=== PATIENT | male | born 1955 | race Caucasian/White ===

== ENCOUNTER → 2016-12-20 | Outpatient (CLI) | payer OTHER ==
--- NOTE | 2016-12-20 09:36 | CPEKG ---
Heart Rate: 55 RR Interval: 1091 P-R Interval: 192 QRSD Interval: 100 QT Interval: 408 QTC Interval: 391 P Massey: 73 QRS Massey: 72 T Wave Massey: 75 EKG Severity - NORMAL ECG - EKG Impression: SINUS RHYTHM Electronically Signed By: Damian Cannon 20-Dec-2016 20:31:06
== END ==
LOC: FCP 09:19
PROVIDERS: ATTEND Neurological Surgery
DX: Z01.812 Encounter for preprocedural laboratory examination (principal)

== ENCOUNTER → 2016-12-20 | Outpatient (CLI) | payer OTHER | LOC: FIMAGING 09:54 | PROVIDERS: ATTEND Neurological Surgery | DX: Z01.812 Encounter for preprocedural laboratory examination (principal) ==

== ENCOUNTER 2016-12-29 11:59 | Observation (INO) | payer OTHER ==
--- NOTE | 2016-12-29 12:24 | EDPHY ---
H & P Stated Complaint: cervical fusion friday/increasing pain/swelling/can't swallow meds - Personal History Current Tetanus/Diphtheria Vaccine: Unsure - Medical/Surgical History Hx Asthma: No Hx Chronic Respiratory Disease: No Hx Diabetes: No Hx Cardiac Disease: No Hx Renal Disease: No Hx Cirrhosis: No Hx Alcoholism: No Hx HIV/AIDS: No Hx Splenectomy or Spleen Trauma: No Other PMH: polymyalgia/cervical fusion - Social History Smoking Status: Never smoked Time Seen by Provider: 12/29/16 12:15 HPI/ROS: CHIEF COMPLAINT: Dysphagia postoperative HISTORY OF PRESENT ILLNESS: 61-year-old male postop day to post C3 through C7 ACDF by Dr. Hector Allen arrives via private vehicle complaining of dysphagia and odynophagia for the past 24 hours. He has been in contact with [facility] this weekend (today is Friday). He has had difficulty swallowing his pills. He denies: Peripheral paresthesia, weakness, numbness, fever, chills, flu-like symptoms visual disturbance, chest pain, dyspnea REVIEW OF SYSTEMS: A ten point review of systems was performed and is negative with the exception of the items mentioned in the HPI PAST MEDICAL & SURGICAL HISTORY: Postop day 3 C3 through C7 ACDF SOCIAL HISTORY: nonsmoker PHYSICAL EXAM (Prior to examination, patient consented to physical exam, hands were washed and my usual and customary physical exam procedures followed) 1) GENERAL: Well-developed, well-nourished, alert and oriented. Appears uncomfortable and anxious 2) HEAD: Normocephalic, atraumatic 3) HEENT: Pupils equal, round, reactive to light bilaterally. Sclera anicteric. No ptosis. moist mucous membranes 4) NECK: Cervical collar in place with JUSTIN drain draining 5) LUNGS: Clear auscultation bilaterally, no wheezes, no rhonchi, no retractions. 6) HEART: Regular rate and rhythm, no murmur, no heave, no gallop. 7) ABDOMEN: No guarding, no rebound, no focal tenderness, 8) MUSCULOSKELETAL: Moving all extremities, no focal areas of tenderness, no obvious trauma. No peripheral edema or discoloration. 9) BACK: no visual or palpable abnormality. 10) SKIN: No rash, no petechiae. 11) Psychiatric: Patient is oriented X 3, there is no agitation. DIFFERENTIAL DIAGNOSIS: in no particular order including but not limited to postoperative pain, epidural abscess, dysphagia post cervical surgery (Mily Franklin) Constitutional: Initial Vital Signs Temperature (C) 36.9 C 12/29/16 12:04 Heart Rate 82 12/29/16 12:04 Respiratory Rate 18 12/29/16 12:04 Blood Pressure 133/73 H 12/29/16 12:04 O2 Sat (%) 92 12/29/16 12:04 O2 Delivery Mode Room Air Allergies/Adverse Reactions: No Known Allergies Allergy (Unverified 12/29/16 12:02) Home Medications: Medication Instructions Recorded Acetaminophen [Tylenol ES 500 mg 500 mg PO Q6 PRN 12/29/16 (*)] Methocarbamol [Robaxin 750 mg (*)] 750 mg PO Q6H 12/29/16 Morphine Sulfate [Morphine Sulfate 15 mg PO Q12H 12/29/16 ER] predniSONE 2 mg PO DAILY 12/29/16 Diazepam [Valium 5 MG (*)] 5 mg PO Q6HRS PRN #0 tab 12/30/16 oxyCODONE IR [Oxycodone Ir (*)] 5 - 10 mg PO Q3HRS PRN #0 tab 12/30/16 Medical Decision Making ED Course/Re-evaluation: 12:39 p.m.: MICHELL Benavidez with [facility] the ER has consulted with Dr. Hector Allen and plan will be admission to his service, start patient on IV Solu-Medrol and IV fluids. They request no imaging at this time. Discussed case with secondary supervising physician Dr Bolaños in ER. (Mily Franklin) - Data Points Medications Given: Discontinued Medications Diazepam (Valium) 5 mg PO Q6HRS PRN PRN Reason: Spasms Stop: 06/27/17 14:32 Last Admin: 12/30/16 12:19 Dose: 5 mg Enoxaparin Sodium (Lovenox) 40 mg SC BID HERNAN Stop: 06/27/17 14:29 Last Admin: 12/30/16 09:14 Dose: 40 mg Sodium Chloride (Ns) 1,000 mls @ 0 mls/hr IV ONCE ONE PRN Reason: Wide Open Stop: 12/29/16 12:38 Last Admin: 12/29/16 13:19 Dose: 1,000 mls Sodium Chloride (Ns) 1,000 mls @ 100 mls/hr IV CONT HERNAN Stop: 06/27/17 14:14 Last Admin: 12/30/16 00:00 Dose: 1,000 mls Methocarbamol (Robaxin) 750 mg PO Q6H HERNAN Stop: 06/27/17 14:29 Last Admin: 12/29/16 15:02 Dose: Not Given Methylprednisolone Sodium Succinate (Solu-Medrol) 125 mg IVP EDNOW ONE Stop: 12/29/16 12:38 Last Admin: 12/29/16 13:19 Dose: 125 mg Morphine Sulfate (Ms Contin/Oramorph) 15 mg PO Q12H HERNAN Stop: 01/08/17 19:59 Last Admin: 12/30/16 09:14 Dose: 15 mg Oxycodone HCl (Oxycodone Ir) 5 - 10 mg PO Q3HRS PRN PRN Reason: Pain, Severe Able to Take PO Stop: 01/08/17 14:10 Last Admin: 12/30/16 12:19 Dose: 10 mg Pneumococcal Polyvalent Vaccine (Pneumovax 23) 0.5 ml IM .ONCE ONE Stop: 12/30/16 13:07 Last Admin: 12/30/16 13:33 Dose: 0.5 ml Prednisone (Prednisone) 2 mg PO DAILY HERNAN Stop: 06/28/17 08:59 Last Admin: 12/30/16 09:33 Dose: 2 mg Departure - Departure Disposition: [facility] Clinical Impression: dysphagia post acdf Condition: Fair
[2016-12-29] MEDS ORDERED: methylPREDNISolone SOD SUCC 125 MG/2 ML VIAL IVP ONE (12:37)
[2016-12-29] MEDS ORDERED: NS 1,000 ML IV ONE (12:37)
[2016-12-29 12:56] LABS: % IMMATURE GRANULYOCYTES 0.2 % (0.0-1.1); ABSOLUTE IMMATURE GRANULOCYTES 0.02 10^3/uL (0.00-0.10); ADD DIFF? NO; ADD MORPH? NO; ADD SCAN? NO; ATYPICAL LYMPHOCYTE FLAG 0 (0-99); FRAGMENT RBC FLAG 0 (0-99); HEMATOCRIT 38.4 % (40.0-51.0); HEMOGLOBIN 12.8 g/dL (13.7-17.5); LEFT SHIFT FLG 0 (0-99); LIPEMIA HEMOLYSIS FLAG 80 (0-99); MEAN CELL HEMOGLOBIN 30.8 pg (27.9-34.1); MEAN CELL HEMOGLOBIN CONCENTR. 33.3 g/dL (32.4-36.7); MEAN CELL VOLUME 92.5 fL (81.5-99.8); MEAN PLATELET VOLUME 9.7 fL (8.7-11.7); PLATELET CLUMPS FLAG 0 (0-99); PLATELET COUNT 156 10^3/uL (150-400); RED BLOOD CELL COUNT 4.15 10^6/uL (4.40-6.38); RED CELL DISTRIBUTION WIDTH 11.9 % (11.5-15.2)
[2016-12-29 13:08] LABS: ANION GAP 9 mEq/L (8-16); CALCIUM 9.3 mg/dL (8.5-10.4); CARBON DIOXIDE 28 mEq/l (22-31); CHLORIDE 96 mEq/L (97-110); CREATININE 0.8 mg/dL (0.7-1.3); GLOMERULAR FILTRATION RATE > 60; GLUCOSE 89 mg/dL (70-100); POTASSIUM 4.2 mEq/L (3.5-5.2); SODIUM 133 mEq/L (134-144)
--- NOTE | 2016-12-29 13:58 | PDCONSULT ---
French Weaver Note: Patient was seen and examined. Agree with HandP by Stephenie Benavidez NP
[2016-12-29] MEDS ORDERED: diphenhydrAMINE 25 MG CAP PO PRN (14:11)
[2016-12-29] MEDS ORDERED: ACETAMINOPHEN 325 MG TAB PO PRN (14:11)
[2016-12-29] MEDS ORDERED: ONDANSETRON DISINTEGRATING 4 MG TAB PO PRN (14:11)
[2016-12-29] MEDS ORDERED: ONDANSETRON 4 MG/2 ML VIAL IVP PRN (14:11)
[2016-12-29] MEDS ORDERED: METHOCARBAMOL 750 MG TAB PO SCH (14:30)
[2016-12-29] MEDS ORDERED: morphINE SR 15 MG TAB PO SCH (14:30)
[2016-12-29] MEDS: oxyCODONE IR 5 MG TAB PO PRN ×2 (14:40→20:00)
[2016-12-29] MEDS: NS 1,000 ML IV SCH (14:40)
[2016-12-29] MEDS: DIAZEPAM 5 MG TAB PO PRN ×2 (14:52→20:35)
[2016-12-29] MEDS: ENOXAPARIN 40 MG/0.4 ML SYR SC SCH (15:01)
--- NOTE | 2016-12-29 17:38 | GHP ---
[f rep st] HISTORY AND PHYSICAL DATE OF ADMISSION: 12/29/2016 CHIEF COMPLAINT: Difficulty swallowing. HISTORY OF PRESENT ILLNESS: The patient is a 61-year-old gentleman who is status post C3-C7 anterior cervical diskectomy and fusion with Dr. Allen on Friday, December 27, 2016, at the [facility]. The patient was discharged to home yesterday, morning of December 28. The patient called the answering service yesterday with difficulty taking deep breaths related to pain and managiement of his post-operative pain. He adjusted his pain medications over the evening and called again this morning to report that nothing had helped. He felt that when he was swallowing his medications, they were foaming up and coming back up into his mouth. I advised him and his to bring him to the emergency room for evaluation of his postoperative dysphagia. He feels the majority of his pre-op bilateral upper extremity symptoms have improved. He has pain between his shoulder blades and into his bilateral shoulders. He denies any weakness. He denies any fever or chills, or any shortness of breath at this time. PAST MEDICAL HISTORY: 1. Polymyalgia rheumatica. 2. History of rib fractures and a lung puncture. 3. History of prostate cancer. 4. Cervical spondylitic myelopathy. PAST SURGICAL HISTORY: 1. Appendectomy. 2. Tonsillectomy. 3. C3-C7 anterior cervical diskectomy and fusion on December 27, 2016. FAMILY HISTORY: Unknown. Patient is adopted. SOCIAL HISTORY: The patient is a construction electrician/builder. He drinks 1 glass of wine daily. He does not smoke cigarettes. He does smoke marijuana occasionally. He denies any other drugs. MEDICATIONS: Prednisone 2 mg daily, Robaxin 750 mg 4 times daily, MS Contin 15 mg twice daily, oxycodone 5-10 mg q.3-4 hours as needed for pain. ALLERGIES: The patient has no known drug allergies. REVIEW OF SYSTEMS: A 12-point review of systems was reviewed and negative, aside from what was mentioned in the HPI. PHYSICAL EXAM: VITAL SIGNS: The patient's blood pressure is 140/72, heart rate is 75, respiratory rate is 16, oxygen saturation is 91% on room air, temperature is 37.1 degrees Celsius. SKIN: The incision is clean, dry and intact. I did remove the dressing and JUSTIN drain. Steri-Strips are left in place. HEENT: Head is normocephalic, atraumatic. Pupils are equal, round, and reactive to light. EOMs intact. Full visual granados on confrontation. NECK : Soft with midline tenderness. Full range of motion with flexion and extension. SPINE: Lateral bearing rotation noted for the lumbar spine. The patient's cervical spine is currently being supported with an [place] hard collar. RESPIRATORY: Deferred. CARDIAC: Deferred. ABDOMEN: Soft, nontender. No peritoneal signs. GENITOURINARY: Deferred. RECTAL: Deferred. NEUROLOGIC: The patient is awake and alert; oriented to name, place, location , time and situation. Memory is intact to immediate past and current events. Speech: No aphasia or dysphonia. Cranial nerves 2 through 12 are grossly intact. Motor: The patient has 5/5 strength in all muscle groups in bilateral upper and lower extremities, which include deltoids, biceps, triceps, brachioradialis, wrist flexors and extensors, vault maker, intrinsic fingers, iliopsoas , quadriceps, hamstrings, plantarflexion and dorsiflexion, and EHL testing. Sensation is grossly intact to light touch throughout all dermatomal distributions in the upper extremities. Negative straight leg raise. Negative LEROY test. Reflexes: Biceps, triceps, brachioradialis, knee jerks and ankle jerks are 2+/4. Toes are downgoing bilaterally. Sandra sign is negative. Babinski is negative. There is no evidence of clonus. DIAGNOSTICS: The patient does not have any new imaging to review. LABORATORY RESULTS: White blood cells are 10.16, hematocrit is 38.4, hemoglobin is 12.8, platelet count is 156. PLAN AND ASSESSMENT: The patient is a 61-year-old male who is postop day 2 of anterior cervical discectomy and fusion C3-C7 with Dr. Allen on December 27, 2016. Patient was discharged home yesterday and was having difficulties with pain management as well as swallowing throughout the day and evening. The patient presented to the emergency room today, feeling that he was unable to swallow his medications and that they were foaming back up into his mouth. We will admit him for observation and evaluation of dysphagia. We appreciate speech pathology therapy input and evaluation on his swallowing and diet. We will order IV pain medications to gain control of his 10/10 pain. The patient was given 1 time dose of Solu-Medrol in the emergency room in an effort to decrease some of his postoperative swelling, which could be contributing to his difficulty swallowing. We will keep him in his hard collar as directed. We will have him work with physical therapy and occupational therapy while he is here as well. The patient was seen in the emergency room for a history and physical by myself and Dr. Jessica Orozco today, December 29, 2016, at 12:30 p.m. /[id number]/MODL MTDD
[2016-12-29] MEDS: morphINE SR 15 MG TAB PO SCH (19:57)
[2016-12-30] MEDS: NS 1,000 ML IV SCH
[2016-12-30] MEDS: DIAZEPAM 5 MG TAB PO PRN ×2 (05:12→12:19)
[2016-12-30] MEDS: oxyCODONE IR 5 MG TAB PO PRN ×4 (05:12→12:19)
[2016-12-30 08:22] VITALS: TEMP 98.1
[2016-12-30] MEDS ORDERED: predniSONE 1 MG TAB PO SCH (09:00)
[2016-12-30] MEDS: ENOXAPARIN 40 MG/0.4 ML SYR SC SCH ×2 (09:14)
[2016-12-30] MEDS: morphINE SR 15 MG TAB PO SCH (09:14)
[2016-12-30 12:34] VITALS: BP 128/78; PULSE 74; RESP 14; O2SAT 95
--- NOTE | 2016-12-30 12:45 | NEUSURGPN ---
Assessment/Plan: 61 yo male sp ACDF 3-[address] Hope on 12/27/2016. Discharged on 12/28 but re- admitted with dysphagia. -Given IV solumendrol in ER and 1 liter IVF. -JUSTIN removed -Dysphagia- improving, on soft puree diet -Dispo-Home today when speech clears -DVT: TEDs, SCDs, ambulating and may take off QUENTIN hose once ambulating 200 yards 3 times per day -Follow up in 10-14 days postop -Discussed with Dr. Hope, will see later today Subjective: Patient states his swallowing is much improved today, no tolerating soft foods. Right arm pain is much improved as well, but still has right sided scapular pain. Denies any weakness. Has had +BM last night. Objective: NAD, VSS Hard cervical collar on, Neck, soft, supple BUE 5/5= Sensation intact to lt touch Incision c/d/i=steri strips on - Physician Discussed Patient with : Alejandro Patient Seen by : [facility] Physical Exam - Vitals, I&O, Labs I and O 12/29/16 12/30/16 12/31/16 05:59 05:59 05:59 Intake Total 1550 Output Total 650 Balance 900 Weight 61.87 kg Intake: Oral (ml) 350 IV Infused (ml) 1200 Ns 1,000 ml @ 100 mls/hr 1200 IV CONT HERNAN Rx#: [id number] Output: Urine (ml) 650 Toilet 450 Urinal 200 Other: Number of Voids Toilet 1 Urinal 1 Number of Stools Toilet 1 Vital Signs Temp Pulse Resp BP Pulse Ox 36.7 C 74 14 128/78 H 95 12/30/16 12:25 12/30/16 12:25 12/30/16 12:25 12/30/16 12:25 12/30/16 12:25 Laboratory Results 12/29/16 12:45 12/29/16 12:45 ICD10 Worksheet Patient Problems: Problems Problem Status Onset Dysphagia Acute - ICD10 Problem Qualifiers (1) Dysphagia Qualifiers: Dysphagia type: D
[2016-12-30] MEDS ORDERED: PNEUMOCOCCAL 0.5ML VACCINE VIAL IM ONE (13:06)
== END 2016-12-30 15:08 | disposition home or self-care (01) ==
LOC: F3N 13:24
PROVIDERS: ADMIT Neurological Surgery; ATTEND Neurological Surgery
DX: R13.19 Other dysphagia (principal); Z98.1 Arthrodesis status; Z23 Encounter for immunization; M35.3 Polymyalgia rheumatica; Z85.46 Personal history of malignant neoplasm of prostate
CPT/HCPCS: 90471; 92526; 92610; 97161; 97165; G0378; G8996; G8997; 96374; G0009; J1650

== ENCOUNTER → 2017-10-20 | Outpatient (CLI) | payer OTHER | LOC: FIMAGING 16:29 | PROVIDERS: ATTEND Physician Assistant Surgical | DX: Z09 Encounter for follow-up examination after completed treatment for conditions other than malignant neoplasm (principal); Z98.1 Arthrodesis status ==